=== PATIENT | female | born 1995 | race Caucasian/White ===

== ENCOUNTER 2021-12-01 19:13 | Outpatient (CLI) | payer OTHER ==
[2021-12-01] MEDS ORDERED: ECOTRIN81 MG PO (20:04)
[2021-12-01] MEDS ORDERED: PRENATAL TABLE1 EAC1 PO (20:04)
== END 2021-12-01 22:17 | disposition home or self-care (01) ==
LOC: OBS/DEL 19:13
PROVIDERS: ATTEND Student in an Organized Health Care Education/Training Program
DX: O26.892 Other specified pregnancy related conditions, second trimester (principal); Z3A.21 21 weeks gestation of pregnancy; R10.2 Pelvic and perineal pain

== ENCOUNTER 2022-01-15 14:32 | Inpatient (IN) | payer OTHER ==
[~2022-01-15] VITALS: Ht 154.9 cm; Wt 95.3 kg
[~2022-01-15 14:32] MED LIST: ECOTRIN81 MG PO; PRENATAL TABLE1 EAC1 PO
== END 2022-01-19 13:13 | disposition left against medical advice (07) | DRG 787 ==
LOC: SURH 14:32 → LDR 14:32 → SURH 01-16 11:48
PROVIDERS: ADMIT Obstetrics & Gynecology; ATTEND Obstetrics & Gynecology
PROC: 4A1HXCZ Monitoring of Products of Conception, Cardiac Rate, External Approach (ICD-10-PCS; 2022-01-15)
PROC: BY4CZZZ Ultrasonography of Second Trimester, Single Fetus (ICD-10-PCS; 2022-01-15)
PROC: 10D00Z1 Extraction of Products of Conception, Low, Open Approach (ICD-10-PCS; principal; 2022-01-16 10:00)
DX: O60.12X0 Preterm labor second trimester with preterm delivery second trimester, not applicable or unspecified (principal); O36.4XX0 Maternal care for intrauterine death, not applicable or unspecified; O32.1XX0 Maternal care for breech presentation, not applicable or unspecified; O34.211 Maternal care for low transverse scar from previous cesarean delivery; Z3A.27 27 weeks gestation of pregnancy; Z37.1 Single stillbirth; Z20.822 Contact with and (suspected) exposure to COVID-19